=== PATIENT | female | born 1995 | race Caucasian/White ===

== ENCOUNTER 2019-04-23 01:41 | Emergency (ER) | payer MEDICAID ==
[~2019-04-23] VITALS: Ht 157.5 cm; Wt 81.0 kg
[2019-04-23] MEDS ORDERED: IBUPROFEN 600MG TABLET PO ONE (03:30)
[2019-04-23 05:44] VITALS: BP 120/82
== END 2019-04-23 05:45 | disposition home or self-care (01) ==
LOC: ER 01:41
DX: S93.401A Sprain of unspecified ligament of right ankle, initial encounter (principal); W10.8XXA Fall (on) (from) other stairs and steps, initial encounter; Y93.89 Activity, other specified; Y92.89 Other specified places as the place of occurrence of the external cause; Y99.8 Other external cause status
CPT/HCPCS: 73610; 99283